=== PATIENT | male | born 1965 | race Caucasian/White ===

== ENCOUNTER 2024-08-16 10:27 | Outpatient (AMB) | payer MEDICAID, SELFPAY ==
[2024-08-16 10:43] VITALS: BP 122/72; PULSE 78; RESP 19; TEMP 36.8; O2SAT 97; BMI 19.3
--- NOTE | 2024-08-16 10:43 | GSCOFFNT_ITS ---
Vital Signs - [facility] 08/16/24 10:43 Height 1.75 m Height Method Stated Weight 59.506 kg Weight Measurement Method Standing Scale BMI 19.3 BP 122/72 Blood Pressure Source Automatic Cuff Blood Pressure Location Left Upper Arm Position Sitting Respiration 19 Pulse 78 Pulse Source Monitor Temp 98.3 F Temp Source Temporal Artery Scan Pulse Oximetry (%) 97 Oxygen Delivery Method Room Air MA Intake Visit Data Collection New Patient or Established: New Patient (never been to [facility]) Seen by Clinical Staff ONLY (RN/MA): No Reason for Visit:: FECAL ABNORMALITY Pain Present Currently: 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 Pt received his results in 01/2024 and initially was referred to a GI but the appt was cancelled due to an emergency and pt reports having difficulty finding another specialist until now. He denies any changes in stool caliber, blood in stool, anorexia and unintentional weight loss, but has never had a colonoscopy PMH: DM, Pt reports he had a severe upper GI bleed 2 years ago requiring emergent transfer to [facility] and 20u of PRBC; he states he had numerous endoscopies during this period but is unsure if he also had colonoscopy PSHx: Neck fusion Meds: Pt is prescribed norco 5-325 for chronic pain; he states he sometimes goes days without it but has other periods of needing it daily, up to 4 tabs per day Allergies: NKDA Family hx: father had jaw CA, no known CRC in family Social hx: 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 I explained benefits/risks of colonoscopy including bleeding, perforation requiring emergent surgery and the possibility of needing to abort for safety. We also discussed conscious sedation vs anesthesia; I explained that given his regular narcotic use it is possible he may be hard to fully sedate, but he prefers to avoid anesthesia if at all possible and feels confident he can tolerate the procedure with sedation. All questions were answered and pt is agreeable to proceeding Plan: Diagnostic colonoscopy [facility] Office Procedures GNS Level of Care Nursing/Assessment Patient Status: Initial/New Patient Nursing Assessment/Reassesment: Medication Reconciliation, Update PMH in EMR and Vital Signs Coordination of Care: Complex Care and Chronic Disease 1-5, Education Complex Pt/Fam, Consent,records obtained, informed consent, Results/Orders obtained and Staff clarify orders New Patient Charge New Patient Point Assignment: 1094 New Patient Point Charge: TALENT ACQUISITION ASSISTANT Level 3 ([id number]) Patient Portal Questionaires Social History Tobacco History Smoking Status: Never smoker Domestic Abuse History Do You Feel Safe at Home: Yes Review of Systems Report any current symptoms Only answer those that you have currently: Past Medical History Past Medical History Have you ever been diagnosed with any of the following:
== END 2024-08-16 11:14 | disposition home or self-care (01) ==
PROVIDERS: PCP Family Medicine; Referring Provider Family Medicine; Supervising Provider Surgery; Visit Provider Surgery
DX: R19.5 Other fecal abnormalities (principal)
CPT/HCPCS: 99203; G0463

== ENCOUNTER 2024-11-09 07:50 | Day surgery (SDC) | payer MEDICAID, SELFPAY ==
[2024-11-08 14:39] VITALS: BMI 18.6
[2024-11-09] VITALS (13 sets, daily range): BP systolic 102–134; BP diastolic 57–81; PULSE 65–75; RESP 11–18; TEMP 36.7–36.8; O2SAT 98–100; BMI 18.6
[2024-11-09] MEDS: DEXTROSE 5%-WATER 500 ML 20 ML IV (08:20)
[2024-11-09] MEDS: DiphenhydrAMINE INJ 50 MG/ML VIAL 25 MG IV (08:31)
[2024-11-09] MEDS: SIMETHICONE 40 MG/0.6 ML ORAL SYRINGE PO (08:35)
[2024-11-09] MEDS: MIDAZOLAM INJ 1 MG/ML VIAL 2 ML (ASD USE ONLY) 2 MG IV (08:40)
[2024-11-09] MEDS: fentaNYL CIT INJ 50 mCg/ML AMP 2ML (ASD USE ONLY) IV (08:40)
[2024-11-09] MEDS: SODIUM CHLORIDE 0.9% 500 ML 500 ML 125 ML IV (09:00)
--- NOTE | 2024-11-09 09:46 | SUR.PHASEII ---
Patient stable and up and getting dressed and ride being called to update clam picker time.
--- NOTE | 2024-11-09 10:35 | SUR.PHASEII ---
1030 Patient stable and medical transport will garbage pick up man patient at 1130. Patient given gram crackers, and tea tolerated well. Place in waiting room stable to wait there to wait for medical transport.
== END 2024-11-09 10:30 | disposition home or self-care (01) ==
PROVIDERS: PCP Family Medicine; Referring Provider Surgery; Visit Provider Surgery
PROC: 0DBE8ZX Excision of Large Intestine, Via Natural or Artificial Opening Endoscopic, Diagnostic (ICD-10-PCS; CPT 45380; principal; 2024-11-09 09:15)
DX: D12.3 Benign neoplasm of transverse colon (principal); D12.8 Benign neoplasm of rectum; K64.8 Other hemorrhoids
CPT/HCPCS: 45385; A4649; J1200; J2250; J3010; J7040; J7060; A9270

== ENCOUNTER 2024-11-22 11:33 | Outpatient (AMB) | payer MEDICAID, SELFPAY ==
--- NOTE | 2024-11-22 12:02 | GSCOFFNT_ITS ---
[facility]ital Signs - [facility] 11/22/24 12:03 Height 1.78 m Height Method Stated Weight 59.052 kg Weight Measurement Method Standing Scale BMI 18.6 BP 138/80 H Blood Pressure Source Automatic Cuff Blood Pressure Location Left Upper Arm Position Sitting Respiration 18 Pulse 75 Pulse Source Monitor Temp 98.3 F Temp Source Temporal Artery Scan Pulse Oximetry (%) 96 Oxygen Delivery Method Room Air Med/Allergies Allergies & Medications Allergies hydromorphone (From Dilaudid) Allergy (Mild, Verified 11/22/24 12:03) Hallucinating Medication Reconciliation albuterol sulfate 90 mcg/actuation aerosol inhaler (Ventolin HFA) 2 puff inhalation Q4H PRN shortness of breath or wheezing 11/08/24 [History Confirmed 11/22/24] fluticasone 250 mcg-salmeterol 50 mcg/dose blistr powdr for inhalation (Advair Diskus) 1 inh inhalation Q12H 11/08/24 [History Confirmed 11/22/24] fluticasone propionate 50 mcg/actuation nasal spray,suspension 2 spray intranasal DAILY PRN nasal congestion 11/08/24 [History Confirmed 11/22/24] hydrocodone 5 mg-acetaminophen 325 mg tablet 1 tab PO Q8H PRN pain 11/08/24 [History Confirmed 11/22/24] Held on 11/09/24. Instructions: Resume on 11/10/24. insulin glargine 100 unit/mL (3 mL) subcutaneous pen (Basaglar KwikPen U-100 Insulin) 10 unit subcut BID 11/08/24 [History Confirmed 11/22/24] lidocaine 5 % topical patch 1 patch topical Q24H 11/08/24 [History Confirmed 0 11/22/24] loratadine 10 mg tablet 10 mg PO Q24H 11/08/24 [History Confirmed 11/22/24] mirtazapine 45 mg tablet 45 mg PO HS 11/08/24 [History Confirmed 11/22/24] omeprazole 40 mg capsule,delayed release 40 mg PO QDAY 11/08/24 [History Confirmed 11/22/24] trazodone 50 mg tablet 50 mg PO HS 11/08/24 [History Confirmed 11/22/24] Held on 11/09/24. Instructions: Resume on 11/10/24. MA Intake Visit Data Collection New Patient or Established: Established Patient (seen at [facility] within 3 years) Seen by Clinical Staff ONLY (RN/MA): No Reason for Visit:: COLONOSCOPY RESULTS Pain Present Currently: No PCP or OBGYN visit in last 3 months: Yes Hx Now: No Do You Feel Safe at Home: Yes Authorities Contacted: N/A Smoking Status Smoking Status: Never smoker Immunization / Flu Flu Vaccine in the Last 12 Months: No Flu Vaccine Exclusion Criteria: No Exclusion Criteria Past Medical History Past Medical History NEUROLOGIC: Positive Neurological Disorders and Peripheral Neuropathy (LEFT LEG); Negative Seizures CARDIAC: Positive Cardiac Disorders and Hypertension (IN THE PAST. RESOLVED); Negative Congestive Heart Failure RESPIRATORY: Positive Chronic Obstructive Pulmonary Disease (COPD) and Pneumonia (2021) GASTROINTESTINAL: Positive Gastrointestinal Disorders, Gastrointestinal Bleed (2018) and Esophageal Varices (2018) GENITOURINARY: Negative Genitourinary Disorders or Renal Disease ENT: Positive Deafness (MILD [place]) ENDOCRINE: Positive Endocrine Disorders and Diabetes Mellitus Type 2; Negative Diabetes Mellitus Type 1 HEMATOLOGIC: Positive Blood Disorders and Anemia PSYCHO/SOCIAL: Positive Depression OTHER HISTORY: Positive Falls (HX OF FALLS . NO RECENT FALLS); Negative Blood Transfusions, Anesthesia Reactions, Chicken Pox, Measles, Mumps or Cancer Social History SMOKING STATUS: Smoking status: Never smoker ALCOHOL: Alcohol Intake: Former HOUSING: Housing: House HPI HPI Narrative 59M s/p colonoscopy 11/09/24 for +cologuard here to discuss results. Pt reports feeling well overall with no concerns regarding his abdomen or bowel habits ROS Review of Systems Systems Reviewed: All systems reviewed, normal except as documented Objective/Exam General General Appearance: alert, cooperative and well groomed Resp Respiratory exam: Absent respiratory distress Results Colonoscopy and pathology reports reviewed: tubular adenoma and TVA Assessment & Plan Diagnosis / Problem List (1) Encounter to discuss colonoscopy results: Status: Acute Assessment & Plan: 59M s/p diagnostic colonoscopy for +cologuard 11/09/24 with findings of a tubular adenoma and TVA. I explained that he should undergo surveillance colonoscopy in 3 years based on these findings. All questions were answered and pt expressed understanding Office Procedures GNS Level of Care Nursing/Assessment Patient Status: Established Patient Nursing Assessment/Reassesment: Medication Reconciliation, Update PMH in EMR and Vital Signs Coordination of Care: Complex Care and Chronic Disease 1-5, Consent,records obtained, informed consent, Education Simp Pt/Fam, Results/Orders obtained and Staff clarify orders Established Patient Charge Established Patient Point Assignment: 90 Established Patient Point Charge: EP Level 3 (80-115) Patient Portal Questionaires Social History Living Situation History Housing: House Tobacco History Smoking Status: Never smoker Alcohol History Alcohol Intake: Former Domestic Abuse History Do You Feel Safe at Home: Yes Review of Systems Report any current symptoms Only answer those that you have currently: Past Medical History Past Medical History Have you ever been diagnosed with any of the following: Neurological Problems Seizures: No Peripheral Neuropathy: Yes (LEFT LEG) Cardiology Problems Congestive Heart Failure: No Hypertension: Yes (IN THE PAST. RESOLVED) Respiratory Problems Chronic Obstructive Pulmonary Disease (COPD): Yes Pneumonia: Yes (2021) Stomache/Intestinal Problems Gastrointestinal Bleed: Yes (2018) Esophageal Varices: Yes (2018) Genital/Urinary Problems Renal Disease: No Head,Eye,Nose,Throat Problems Deafness: Yes (MILD [place]) Endocrine Problems Diabetes Mellitus Type 1: No Diabetes Mellitus Type 2: Yes Blood Problems Anemia: Yes Psychologic Problems Depression: Yes Other Problems Falls: Yes (HX OF FALLS . NO RECENT FALLS) Blood Transfusions: No Anesthesia Reactions: No Chicken Pox: No Measles: No Mumps: No Cancer: No
[2024-11-22 12:03] VITALS: BP 138/80; PULSE 75; RESP 18; TEMP 36.8; O2SAT 96; BMI 18.6
== END 2024-11-22 12:07 | disposition home or self-care (01) ==
LOC: HODSRG 11:33
PROVIDERS: PCP Family Medicine; Referring Provider Family Medicine; Supervising Provider Surgery; Visit Provider Surgery
DX: Z71.2 Person consulting for explanation of examination or test findings (principal); D12.6 Benign neoplasm of colon, unspecified
CPT/HCPCS: 99213; G0463